=== PATIENT | male | born 1970 | race Caucasian/White ===

== ENCOUNTER 2019-01-22 10:35 | Emergency (ER) | payer MEDICAID ==
[~2019-01-22] VITALS: Ht 175.3 cm; Wt 118.0 kg
[2019-01-22 11:45] VITALS: BP 158/97
== END 2019-01-22 11:48 | disposition home or self-care (01) ==
LOC: ER 10:35
DX: Z76.0 Encounter for issue of repeat prescription (principal); E11.9 Type 2 diabetes mellitus without complications; Z79.4 Long term (current) use of insulin; Z86.73 Personal history of transient ischemic attack (TIA), and cerebral infarction without residual deficits; Z87.891 Personal history of nicotine dependence
CPT/HCPCS: 82962; 99282

== ENCOUNTER 2019-01-27 12:13 | Emergency (ER) | payer MEDICAID ==
[~2019-01-27] VITALS: Ht 177.8 cm; Wt 115.0 kg
[2019-01-27 15:25] LABS: BASOPHILS % 0.5 % (0.0-2.0); EOSINOPHILS % 1.2 % (0.0-5.0); HEMOGLOBIN. 16.2 g/dL (14.0-18.0); LYMPHOCYTES % 22.4 % (20.0-50.0); MEAN CORPUSCULAR HEMOGLOBIN 32.2 pg (28.0-32.0); MEAN CORPUSCULAR VOLUME 93.7 fL (80.0-94.0); MEAN PLATELET VOLUME 8.1 fl (7.4-10.4); NEUTROPHILS % 69.9 % (40.0-76.0); PLATELET 198 x1000/uL (130-400); RED BLOOD CELL COUNT 5.01 mill/uL (4.7-6.1); RED CELL DISTRIBUTION WIDTH 13.2 % (11.6-14.6)
[2019-01-27 15:29] LABS: CHLORIDE 108 mEq/L (98-107)
[2019-01-27 16:05] VITALS: BP 157/89
== END 2019-01-27 16:08 | disposition home or self-care (01) ==
LOC: ER 12:13
DX: R42 Dizziness and giddiness (principal); E11.9 Type 2 diabetes mellitus without complications; Z86.73 Personal history of transient ischemic attack (TIA), and cerebral infarction without residual deficits
CPT/HCPCS: 36415; 80048; 99283